=== PATIENT | male | born 1965 | race Caucasian/White ===

== ENCOUNTER 2022-04-01 09:29 | Emergency (ER) | payer BC, OTHER ==
[2022-04-01 09:33] VITALS: BP 142/91; PULSE 62; RESP 20; TEMP 98.2; BMI 35.4
[2022-04-01] MEDS ORDERED: ACETAMINOPHEN 500 MG TABLET (FP) PO ONE (10:19)
[2022-04-01] MEDS ORDERED: ACETAMINOPHEN 500 MG TABLET (FP) ONE (10:37)
[2022-04-01 11:57] LABS: BASO % 0.7 % (0-2.0); HEMATOCRIT 51.2 % (35.4-49); HEMOGLOBIN 17.2 GM/dL (11.7-16.9); LYMPH % 18.3 % (8-40); MCH 30.1 pg (25.7-33.7); MCHC 33.7 g/dl (32.0-35.9); MEAN CELL VOLUME 89.5 fl (80-96); MEAN PLT VOLUME 9.3 fl (7.5-11.1); MONO % 8.1 % (3.8-10.2); NEUT % 71.9 % (42.8-82.8); PLATELET COUNT 213 10^3/uL (134-434); RBC 5.72 M/mm3 (4.00-5.60); WHITE BLOOD COUNT 8.9 K/mm3 (4.0-10.0)
[2022-04-01 12:26] LABS: ALBUMIN 3.9 g/dl (3.4-5.0); BLOOD UREA NITROGEN 13.5 mg/dL (7-18); CALCIUM 9.3 mg/dL (8.5-10.1)
[2022-04-01 12:30] LABS: CREATININE 1.1 mg/dL (0.55-1.3)
[2022-04-01 12:32] LABS: BILIRUBIN,TOTAL 0.5 mg/dL (0.2-1); TOT PROT 7.3 g/dl (6.4-8.2)
== END 2022-04-01 13:11 | disposition home or self-care (01) ==
LOC: JER 09:29
DX: R42 Dizziness and giddiness (principal)
CPT/HCPCS: 0241U-QW; 36415; 71045-TC-FY; 80053; 84484; 85025; 93005; 93010; 99285-25

== ENCOUNTER 2022-05-02 04:17 | Day surgery (SDC) | payer BC, OTHER ==
[2022-04-30 14:11] VITALS: BMI 27.3
[2022-05-02 09:28] VITALS: TEMP 97
[2022-05-02 15:20] VITALS: BP 134/65; PULSE 75; RESP 13
== END 2022-05-02 10:35 | disposition home or self-care (01) ==
LOC: JASU-ENDO 04:17
PROVIDERS: ATTEND Internal Medicine Gastroenterology
PROC: 0DB68ZX Excision of Stomach, Via Natural or Artificial Opening Endoscopic, Diagnostic (ICD-10-PCS; 2022-05-02)
PROC: 0DB28ZX Excision of Middle Esophagus, Via Natural or Artificial Opening Endoscopic, Diagnostic (ICD-10-PCS; 2022-05-02)
PROC: 0DB38ZX Excision of Lower Esophagus, Via Natural or Artificial Opening Endoscopic, Diagnostic (ICD-10-PCS; 2022-05-02)
PROC: 0DB98ZX Excision of Duodenum, Via Natural or Artificial Opening Endoscopic, Diagnostic (ICD-10-PCS; principal; 2022-05-02 11:00)
DX: K29.50 Unspecified chronic gastritis without bleeding (principal); K21.00 Gastro-esophageal reflux disease with esophagitis, without bleeding; K31.7 Polyp of stomach and duodenum
CPT/HCPCS: 88305-TC; 88342-TC

== ENCOUNTER 2023-12-07 01:51 | Emergency (ER) | payer OTHER ==
[2023-12-07 01:59] VITALS: BP 164/94; PULSE 74; RESP 18; TEMP 98.5; BMI 34.9
[2023-12-07] MEDS ORDERED: SUCRALFATE 1 GM TABLET (FP) ONE (02:39)
[2023-12-07] MEDS ORDERED: MAG HYDROX/AL HYDROX/SIMETH 30 ML UNIT-DOSE CUP ONE (02:39)
[2023-12-07] MEDS ORDERED: ACETAMINOPHEN INJECTION 100 ML IVPB ONE (02:39)
[2023-12-07] MEDS: MAG HYDROX/AL HYDROX/SIMETH 30 ML UNIT-DOSE CUP PO ONE (02:55)
[2023-12-07] MEDS: ACETAMINOPHEN 1000 MG/100 ML BAG IVPB ONE (02:55)
[2023-12-07] MEDS: ONDANSETRON 4 MG/2 ML VIAL IVPUSH ONE (02:55)
[2023-12-07] MEDS: SUCRALFATE 1 GM/10 ML UNIT DOSE CUPS PO ONE (02:55)
[2023-12-07 02:59] LABS: BASO % 1.1 % (0-2.0); EOS % 1.7 % (0-4.5); HEMATOCRIT 49.1 % (35.4-49); HEMOGLOBIN 16.5 GM/dL (11.7-16.9); LYMPH % 22.5 % (8-40); MCH 30.1 pg (25.7-33.7); MCHC 33.6 g/dl (32.0-35.9); MEAN CELL VOLUME 89.4 fl (80-96); MEAN PLT VOLUME 9.8 fl (7.5-11.1); MONO % 11.3 % (3.8-10.2); NEUT % 63.4 % (42.8-82.8); PLATELET COUNT 196 10^3/uL (134-434); RBC 5.49 M/mm3 (4.00-5.60); RDW 13.2 % (11.9-15.9); WHITE BLOOD COUNT 8.2 K/mm3 (4.0-10.0)
[2023-12-07] MEDS: FAMOTIDINE 20 MG/50 ML IVPB 20 MG/50 ML MG IVPB SCH (03:08)
[2023-12-07 03:11] LABS: POTASSIUM 4.5 mmol/L (3.5-5.1)
[2023-12-07 03:14] LABS: CALCIUM 9.5 mg/dL (8.5-10.1)
[2023-12-07 03:15] LABS: ALBUMIN 3.7 g/dl (3.4-5.0)
[2023-12-07 03:18] LABS: CREATININE 1.2 mg/dL (0.55-1.3); TOT PROT 7.1 g/dl (6.4-8.2)
[2023-12-07 03:20] LABS: BILIRUBIN,TOTAL 0.3 mg/dL (0.2-1)
[2023-12-07 15:18] LABS: HIV INTERPRETATION NEGATIVE (NEGATIVE)
== END 2023-12-07 04:30 | disposition home or self-care (01) ==
LOC: JER 01:51
PROC: 3E033NZ Introduction of Analgesics, Hypnotics, Sedatives into Peripheral Vein, Percutaneous Approach (ICD-10-PCS; principal; 2023-12-07)
DX: K21.00 Gastro-esophageal reflux disease with esophagitis, without bleeding (principal)
CPT/HCPCS: 36415; 80053; 84484; 85025; 87389; 93005; 93010; 99284-25; J0131

== ENCOUNTER 2024-03-14 19:17 | Emergency (ER) | payer OTHER ==
[2024-03-14] MEDS ORDERED: ACETAMINOPHEN INJECTION 100 ML ONE (19:36)
[2024-03-14 19:37] VITALS: BMI 30.1
[2024-03-14 19:53] LABS: BASO % 0.5 % (0-2.0); EOS % 0.7 % (0-4.5); HEMATOCRIT 44.7 % (35.4-49); HEMOGLOBIN 15.1 GM/dL (11.7-16.9); LYMPH % 19.8 % (8-40); MCHC 33.8 g/dl (32.0-35.9); MEAN CELL VOLUME 88.6 fl (80-96); MEAN PLT VOLUME 9.5 fl (7.5-11.1); MONO % 7.8 % (3.8-10.2); NEUT % 71.2 % (42.8-82.8); PLATELET COUNT 240 10^3/uL (134-434); RBC 5.04 M/mm3 (4.00-5.60); RDW 13.3 % (11.9-15.9); WHITE BLOOD COUNT 15.6 K/mm3 (4.0-10.0)
[2024-03-14 20:14] LABS: INR 0.94 (0.83-1.09); PROTHROMBIN TIME (PATIENT) 10.6 SEC (9.7-13.0)
[2024-03-14 20:17] LABS: ACTIVATED PTT 25.3 SECONDS (25.2-36.5)
[2024-03-14 20:22] LABS: POTASSIUM 3.6 mmol/L (3.5-5.1)
[2024-03-14 20:25] LABS: ALBUMIN 3.8 g/dl (3.4-5.0); BLOOD UREA NITROGEN 17.5 mg/dL (7-18)
[2024-03-14 20:28] LABS: CREATININE 1.5 mg/dL (0.55-1.3)
[2024-03-14 20:29] LABS: BILIRUBIN,TOTAL 0.5 mg/dL (0.2-1); TOT PROT 6.8 g/dl (6.4-8.2)
[2024-03-14 21:05] VITALS: PULSE 74
[2024-03-14 22:22] LABS: VENOUS BASE EXCESS -2.2 mmol/L (-2-2); VENOUS O2 SATURATION 50.7 % (70-80); VENOUS PCO2 47.3 mmHg (38-52); VENOUS PH 7.326 (7.310-7.410)
[2024-03-14] MEDS: SODIUM CHLORIDE 1,000 ML IV STA (23:24)
[2024-03-14 23:34] VITALS: BP 117/66; RESP 18
[2024-03-15 00:13] VITALS: TEMP 98.6
== END 2024-03-15 | disposition short-term general hospital (02) ==
LOC: JER 19:17
PROC: 3E0337Z Introduction of Electrolytic and Water Balance Substance into Peripheral Vein, Percutaneous Approach (ICD-10-PCS; principal; 2024-03-14)
DX: S36.029A Unspecified contusion of spleen, initial encounter (principal); S39.91XA Unspecified injury of abdomen, initial encounter; R55 Syncope and collapse; W21.11XA Struck by baseball bat, initial encounter; Z20.822 Contact with and (suspected) exposure to COVID-19
CPT/HCPCS: 0241U-QW; 36415; 71045-TC-FY; 71275-TC; 74174-TC; 80053; 82803; 83605; 84484; 85025; 85610; 85730; 86850; 86900; 86901; 93005; 93010; 99285-25; Q9967

== ENCOUNTER 2024-04-04 04:43 | Day surgery (SDC) | payer OTHER ==
[2024-04-01 09:17] VITALS: BMI 35.4
[2024-04-04 11:29] VITALS: TEMP 98.2
[2024-04-04 11:46] VITALS: RESP 18
[2024-04-04 12:29] VITALS: BP 129/70; PULSE 66
== END 2024-04-04 12:29 | disposition home or self-care (01) ==
LOC: JASU-ENDO 04:43
PROVIDERS: ATTEND Internal Medicine Gastroenterology
PROC: 0DBL8ZX Excision of Transverse Colon, Via Natural or Artificial Opening Endoscopic, Diagnostic (ICD-10-PCS; principal; 2024-04-04 11:00)
DX: Z12.11 Encounter for screening for malignant neoplasm of colon (principal); D12.3 Benign neoplasm of transverse colon; K57.30 Diverticulosis of large intestine without perforation or abscess without bleeding; R19.4 Change in bowel habit
CPT/HCPCS: 88305-TC